=== PATIENT | male | born 1950 | race Asian ===

== ENCOUNTER 2016-11-04 12:52 | Inpatient (IN) | payer MEDICAID ==
[~2016-11-04] VITALS: Ht 180.3 cm; Wt 76.7 kg
[2016-11-04 13:06] VITALS: BP 140/103
--- NOTE | 2016-11-04 13:10 | NUR ---
Patient to bed 06.
[2016-11-04] MEDS ORDERED: LEVOD PO ×2 (13:16→16:29)
[2016-11-04] MEDS ORDERED: CARBIDOPA PO ×2 (13:16→16:29)
[2016-11-04] MEDS ORDERED: PAROXETINE20 MG PO ×2 (13:16→16:29)
[2016-11-04] MEDS ORDERED: COZAAR25 M1 PO ×2 (13:16→16:29)
[2016-11-04] MEDS ORDERED: MIRAPEX0.25 MG PO ×2 (13:16→16:29)
[2016-11-04] MEDS ORDERED: COMTAN200 MG PO ×2 (13:16→16:29)
[2016-11-04] MEDS ORDERED: CLONIDINE (13:20)
--- NOTE | 2016-11-04 13:25 | NUR ---
PATIENT PRESENTS TO ED CHEST PAIN X2 HOUR WITH DIZZINESS, WITH NAUSEA. HX PARKINSON'S AND HTN.PT STATES DENIES N/V/D; SKIN IS PINK/WARM/DRY; LUNGS CLEAR BL; HR EVEN AND REGULAR; PT DENIES ANY FEVER, OR COUGH AT THIS TIME; PATIENT STATES PAIN OF 9/10 AT THIS TIME; PATIENT POSITIONED FOR COMFORT; HOB ELEVATED; BEDRAILS UP X2; BED DOWN. DR. MAZA AT BEDSIDE. PT AAO, FAMILY AT BEDSIDE
--- NOTE | 2016-11-04 13:25 | NUR ---
DR. SHAUNNA DUNCAN PATIENT AT BEDSIDE
[2016-11-04] MEDS ORDERED: NITROGLYCERIN 0.4 MG TAB SL ONE (13:35)
[2016-11-04] MEDS ORDERED: ASPIRIN 325 MG TAB PO ONE (13:35)
--- NOTE | 2016-11-04 15:09 | NUR ---
PT RESTING AT THIS TIME, AWARE WILL BE TRANSFER TO THE TELE, FAMILY AT BEDSIDE, SKIN WARM TO TOUC RESP. EVEN AND UNLABORED.
--- NOTE | 2016-11-04 15:18 | NUR ---
REPORT GIVEN TO ANGEL IN TELE MADE AWARE NEED URINE FOR COLLECTION
--- NOTE | 2016-11-04 15:40 | NUR ---
RECEIVED PT FROM ER NURSE AWAKE LYING ON A GURNEY ACCOMPANIED BY SISTER. NO S/S OF RESPIRATORY DISTRESS OR DISCOMFORT, NO CHEST PAIN VERBALIZED BY THE PT. INITIAL ASSESSMENT DONE. WITH IV ACCESS AT RIGHT FOREARM 20G, PATENT AND INTACT. VS STABLE. SAFETY PRECAUTIONS ENFORCED. PT ORIENTED TO PERSON, TIME, PLACE. DISCUSSED PLAN OF CARE, PT VERBALIZED UNDERSTANDING. CALL LIGHT WITHIN REACH, WILL CONTINUE TO MONITOR.
[2016-11-04 16:00] VITALS: BP 149/88
[2016-11-04] MEDS ORDERED: CLONIDINE PO (16:29)
--- NOTE | 2016-11-04 17:00 | NUR ---
INFORMED DR BHATTI OF LOW MAGNESIUM.
[2016-11-04] MEDS ORDERED: ATORVASTATIN 20 MG TAB PO SCH (17:30)
[2016-11-04] MEDS ORDERED: METOPROLOL 25 MG TAB PO SCH (17:31)
[2016-11-04] MEDS ORDERED: MAG SULF 2000 MG/WATER PREMIX 50 ML IV SCH (17:31)
--- NOTE | 2016-11-04 18:00 | NUR ---
MAGNESIUM GIVEN PER ORDERS. DUE MEDS GIVEN, TOLERATED WELL. SAFETY PRECAUTIONS REENFORCED, PT VERBALIZED UNDERSTANDING. AT BEDSIDE. ALL NEEDS MET AT THIS TIME, WILL CONTINUE TO MONITOR.
--- NOTE | 2016-11-04 19:04 | NUR ---
ENDORSED PT TO JED MAURICIO IN STABLE CONDITION FOR CONTINUITY OF CARE
--- NOTE | 2016-11-04 19:10 | NUR ---
RECEIVED PT AWAKE, JUST FINISHED TAKING ULTRASOUND OF THE GALLBLADDER, WILL PROVIDE WITH REGULAR DIET ORDERED, AAOX4, WITH GEN WEAKNESS NOTED, OCCASIONAL TREMORS OF THE UPPER EXT DUE TO PARKINSON DISEASE, VITAL SIGNS STABLE, SB-SR ON TELE, DENIES CHEST PAIN, POC DISCUSSED TOGETHER WITH AT BEDSIDE, CALL LIGHT WITHIN REACH.
[2016-11-04] MEDS ORDERED: ATIVAN1 MG PO (19:52)
[2016-11-04 20:00] VITALS: BP 138/91
[2016-11-04] MEDS: ENTACAPONE 200 MG TAB PO SCH (20:00)
[2016-11-04] MEDS: CARBIDOPA/LEVODOPA 25/100 MG 1 TAB PO SCH (20:25)
[2016-11-04] MEDS: PARoxetine 20 MG TAB PO SCH (20:25)
[2016-11-04] MEDS: cloNIDine 0.1 MG TAB PO SCH (20:26)
[2016-11-04] MEDS: METOPROLOL 25 MG TAB PO SCH (20:29)
[2016-11-04] MEDS: PRAMIPEXOLE 0.5 MG TAB PO SCH (21:33)
[2016-11-04] MEDS: LORazepam 1 MG TAB PO SCH (21:33)
--- NOTE | 2016-11-04 22:10 | NUR ---
PT PREFER TO STAND WHEN VOIDING USING URINAL, MINIMAL ASSIST DONE AND VOIDED FREELY, MONITORED CLOSELY.
[2016-11-05] VITALS: BP 123/75
--- NOTE | 2016-11-05 | NUR ---
ASLEEP, EASILY AROUSABLE, VITAL SIGNS STABLE, SB ON TELE, DENIES ANY CHEST PAIN, CONTINUE TO MONITOR CLOSELY.
--- NOTE | 2016-11-05 02:00 | NUR ---
ROUNDED ON PT, SLEEPING, NO SIGNS OF DISTRESS.
[2016-11-05 04:00] VITALS: BP 122/88
--- NOTE | 2016-11-05 04:00 | NUR ---
SLEEPING, EASILY AROUSABLE, VITAL SIGNS STABLE, SB-50'S ON TELE, ASYMPTOMATIC, DENIES ANY PAIN, MONITORED CLOSELY.
[2016-11-05] MEDS: ENTACAPONE 200 MG TAB PO SCH ×6 (04:59→20:49)
--- NOTE | 2016-11-05 05:10 | NUR ---
DUE PO MEDICATION FOR PARKINSON TAKEN, SCD'S APPLIED TO BLE.
--- NOTE | 2016-11-05 06:00 | NUR ---
SEEN PT SLEEPING, NO SIGNS OF DISTRESS, MONITORED CLOSELY.
[2016-11-05] MEDS: CARBIDOPA/LEVODOPA 25/100 MG 1 TAB PO SCH ×3 (07:07→17:14)
--- NOTE | 2016-11-05 07:34 | NUR ---
PT AWAKE, NO DISTRESS NOTED, PT WANTS SCD OFF, RISK AND BENEFITS EXPLAINED, ENDORSE TO JED VANEGAS FOR CONTINUITY OF CARE.
--- NOTE | 2016-11-05 07:35 | NUR ---
RECEIVED REPORT FROM THE CO FOUNDER NURSE. PT IS ALERT AND ORIENTED. I INTRODUCED MYSELF AND UPDATED THE BOARD. PT SPEAKS VERY BROKEN WELSH. ANSWERS SHORT EASY QUESTIONS. PT SKIN IS INTACT, SCD'S ON AND NOTED TH R FA 20G NS AT 10ML. WILL SL. NO SIGNS OF DISTRESS. NO COMPLAINTS. WILL CONTINUE TO MONITOR PT.
[2016-11-05 08:00] VITALS: BP 134/90
--- NOTE | 2016-11-05 09:10 | NUR ---
PATIENT HAS BEEN SCREENED AND CATEGORIZED MODERATE NUTRITION RISK. PATIENT WILL BE SEEN WITHIN 3-5 DAYS OF ADMISSION. 11/07/16-11/09/[address]
[2016-11-05] MEDS: PRAMIPEXOLE 0.5 MG TAB PO SCH ×3 (09:15→17:14)
[2016-11-05] MEDS: METOPROLOL 25 MG TAB PO SCH ×2 (09:16→20:43)
[2016-11-05] MEDS: LOSARTAN 25 MG TAB PO SCH (09:16)
[2016-11-05] MEDS: ATORVASTATIN 20 MG TAB PO SCH (09:16)
[2016-11-05] MEDS: cloNIDine 0.1 MG TAB PO SCH (09:17)
--- NOTE | 2016-11-05 09:20 | NUR ---
ADMINISTERED MORNING MEDS. PT TOLERATED WELL. AMBULATED TO THE BATHROOM. NO SIGNS OF DISTRESS. WILL CONTINUE TO MONITOR.
--- NOTE | 2016-11-05 11:09 | NUR ---
PT SLEEPING. NO SIGNS OF DISTRESS. WILL CONTINUE TO MONITOR.
[2016-11-05] MEDS ORDERED: MAG SULF 2000 MG/WATER PREMIX 50 ML IV SCH (11:43)
[2016-11-05 12:00] VITALS: BP 117/75
--- NOTE | 2016-11-05 12:06 | NUR ---
PT SITTING IN HIGH [place] WITH AT BEDSIDE. PT IS DOING FINE. PT'S AT BEDSIDE. DR ORDER MAG-RIDER FOR HIS LOW MAGNESIUM AT 1.7. HUNG MAG RIDER AT 25ML/HR. TOLD PT IT WILL TAKE 2 HRS TO COMPLETE. EDUCATED PT AND . ANSWERED ALL QUESTIONS. SAFETY MEASURES APPLIED. SPOKE TO ABOUT HIS PARKINSON'S MEDS AND HE TAKES IT AT HOME. PT AND STATED: MIRAPEX BID; CARVDOPA Q4; AND COMTAN Q6. NOTIFIED DR. BHATTI OF FREQUENCY CHANGES. WILL CONTINUE TO MONITOR PT.
--- NOTE | 2016-11-05 12:21 | NUR ---
CM NOTE FAXED REVIEW TO [facility] ED FAX# [phone] DEPT ADINA/TIFFANY PH# [phone]
[2016-11-05] MEDS ORDERED: MIRAPEX0.25 MG PO (14:24)
[2016-11-05] MEDS ORDERED: COMTAN200 MG PO (14:24)
--- NOTE | 2016-11-05 14:35 | NUR ---
PT HR STILL SB. AT 47 RIGHT NOW. PT IS ASYMPTOMATIC. RESTING COMFORTABLY IN BED. DR. CONDE. WILL CONTINUE MONITORING PT.
--- NOTE | 2016-11-05 15:00 | NUR ---
SPOKE TO DR. BHATTI ABOUT PT AND HIS HR. MD RECOMMENDED THAT WE HOLD BP MEDS IF HR IS LESS THAN 60. WILL FOLLOW WITH ORDER. WILL PASS ON TO CONTINUOUS PROCESS ROTARY DRUM TANNER NURSE.
[2016-11-05 16:00] VITALS: BP 116/62
--- NOTE | 2016-11-05 17:30 | NUR ---
PT SITTING AT THE EDGE OF BED, FEET DANGLING WITH FAMILY AT BEDSIDE. DINNER TRAY DELIVERED. PT IS STABLE. HR IS BETTER AROUND 60. NO COMPLAINTS AT THIS TIME. WILL CONTINUE TO MONITOR PT.
--- NOTE | 2016-11-05 19:30 | NUR ---
GAVE REPORT TO THE LIQUEFACTION AND REGASIFICATION HELPER NURSE AT BEDSIDE FOR CONTINUITY OF CARE. PT IS STABLE.
--- NOTE | 2016-11-05 19:30 | NUR ---
RECEIVED REPORT FROM ROMINA ADKINS FOR CONTINUITY OF CARE. PT IS A&OX4, DISCUSSED PLAN OF CARE WITH PATIENT, VERBALIZED UNDERSTANDING. SHIFT ASSESSMENT DONE, VS TAKEN, PT IS STABLE AT THIS TIME. NO S/S OF RESPIRATORY DISTRESS NOTED ON ROOM AIR. PATIENT DENIES CHEST PAIN. IV TO RT FOREARM 20 GAUGE PATENT AND FLUSHED. SKIN INTACT. SAFETY/ FALL PRECAUTIONS ENFORCED. CALL LIGHT PLACED WITHIN REACH AND PATIENT EDUCATED TO USE FOR ASSISTANCE. WILL CONTINUE TO MONITOR.
[2016-11-05 20:00] VITALS: BP 116/52
[2016-11-05] MEDS: LORazepam 1 MG TAB PO SCH (20:48)
[2016-11-05] MEDS: PARoxetine 20 MG TAB PO SCH (20:48)
--- NOTE | 2016-11-05 20:49 | NUR ---
DUE MEDICATIONS ADMINISTERED, TOLERATED WELL. CALL LIGHT PLACED WITHIN REACH.
--- NOTE | 2016-11-05 22:17 | NUR ---
PATIENT AMBULATED TO RESTROOM, VOIDED. RETURNED TO BED, PATIENT REFUSED SCDS.
[2016-11-06] VITALS: BP 95/60
[2016-11-06] MEDS: ENTACAPONE 200 MG TAB PO SCH ×5 (00:06→12:16)
--- NOTE | 2016-11-06 00:09 | NUR ---
VS TAKEN, LOW BP NOTED, RAISED LOWER PART OF BED WILL REASSESS. PT IS SLEEPING. NO S/S OF DISTRESS NOTED. CALL LIGHT WITHIN REACH.
--- NOTE | 2016-11-06 01:59 | NUR ---
CHECKED IN ON PT, HE IS SLEEPING. NO S/S OF DISTRESS OR DISCOMFORT NOTED.
--- NOTE | 2016-11-06 03:53 | NUR ---
DUE MEDS ADMINISTERED, TOLERATED WELL. VS TAKEN, STABLE. CALL LIGHT WITHIN REACH.
[2016-11-06 04:00] VITALS: BP 127/73
--- NOTE | 2016-11-06 05:52 | NUR ---
PT IS SLEEPING. NO S/S OF DISTRESS OR DISCOMFORT NOTED. CALL LIGHT WITHIN REACH.
--- NOTE | 2016-11-06 07:15 | NUR ---
ENDORSED PATIENT TO DAYSHIFT RN FOR CONTINUITY OF CARE. PATIENT IS STABLE.
--- NOTE | 2016-11-06 07:16 | NUR ---
RECEIVED REPORT FROM NIGHT NURSE JED RIVER. PATIENT APPEARED TO BE CALM, AWAKE AND RESTING WELL IN BED. AAOX4. NO SOB OR SIGN OF DISTRESS NOTED. INITIAL ASSESSMENT AND BODY CHECK DONE. SKIN INTACT. PATIENT DENIED ANY PAIN OR CHEST DISCOMFORT. DENIED N/V. LUNG SOUNDED CLEAR ALL LUNG NAVAS, BOWEL SOUNDED ACTIVE. PATIENT HAS IV 20G TO RIGHT FOREARM INTACT AND FLUSHED WELL. PLAN OF CARE AND PAIN MANAGEMENT AND MEDICATION REGIMENTS DISCUSSED, PATIENT VERBALIZED UNDERSTANDING. CALL LIGHT WITHIN REACH. WILL CONTINUE TO MONITOR.
[2016-11-06 08:00] VITALS: BP 122/79
[2016-11-06] MEDS: CARBIDOPA/LEVODOPA 25/100 MG 1 TAB PO SCH ×2 (08:24→12:15)
[2016-11-06] MEDS: cloNIDine 0.1 MG TAB PO SCH (08:24)
[2016-11-06] MEDS: ATORVASTATIN 20 MG TAB PO SCH (08:24)
[2016-11-06] MEDS: PRAMIPEXOLE 0.5 MG TAB PO SCH ×2 (08:24→12:15)
[2016-11-06] MEDS: LOSARTAN 25 MG TAB PO SCH (08:24)
[2016-11-06] MEDS: METOPROLOL 25 MG TAB PO SCH (08:25)
--- NOTE | 2016-11-06 08:26 | NUR ---
MORNING DUE MEDICATIONS GIVEN WITH TEACHING, PATIENT TOLERATED WELL AND VERBALIZED UNDERSTANDING. NO SIGN OF DISTRESS NOTED. PATIENT HAS NO C/O OF DISCOMFORT AT THIS TIME. PATIENT CURRENTLY RESTING AND EATING BREAKFAST. CALL LIGHT WITHIN REACH. WILL CONTINUE TO MONITOR.
--- NOTE | 2016-11-06 10:15 | NUR ---
RECHECKED VITAL. PATIENT'S BP 91/40. PULSE 50. NOTIFIED DR SARAVIA AND AWARE PATIENT'S LOW BLOOD PRESSURE.
--- NOTE | 2016-11-06 10:15 | NUR ---
PUT PATIENT ON [place] POSITION. OTHERWISE APPEARED TO BE CALM AND FULLY AWAKE TO NAME CALLED AND TOUCH.
[2016-11-06] MEDS ORDERED: NACL 0.9% 500 ML IV ONE (10:35)
--- NOTE | 2016-11-06 10:39 | NUR ---
500ML BOLUS IVF OF NS INITIATED. PATIENT DENIED ANY HEADACHE OR DIZZINESS. CALL LIGHT WITHIN REACH. WILL CONTINUE TO MONITOR.
--- NOTE | 2016-11-06 10:54 | NUR ---
500ML OF NS BOLUS FINISHED. RECHECKED VS. BP 113/58, P57, O2 SAT AT 98%, RR18. PATIENT RESTING WELL IN BED. NO SIGN OF DISTRESS NOTED. ELLIS.
[2016-11-06 11:40] VITALS: BP 95/55
[2016-11-06] MEDS ORDERED: MAGNESIUM OXIDE 400 MG TAB PO SCH (12:09)
--- NOTE | 2016-11-06 12:18 | NUR ---
DUE MEDICATIONS GIVEN, PATIENT TOLERATED WELL. PATIENT AWAKE SITING ON CHAIR EATING LUNCH. DENIED ANY CHEST PAIN OR DISCOMFORT. ALL NEEDS ARE MET. CALL LIGHT WITHIN REACH. WILL CONTINUE TO MONITOR.
--- NOTE | 2016-11-06 13:17 | NUR ---
SPOKE TO PATIENT'S RICARDO ON THE PHONE REGARDING PATIENT WILL BE DISCHARGE TO DAY AROUND 1500, STATED PATIENT'S SISTER WILL COME AND PICK HIM AT 1500. PATIENT ALSO UPDATED AND AWARE.
[2016-11-06] MEDS ORDERED: LIPITOR10 MG PO (14:06)
[2016-11-06] MEDS ORDERED: PNEUMOCOCCAL VACCINE 23 MCG/0.5 ML VIAL IMVAC SCH (14:50)
--- NOTE | 2016-11-06 15:25 | NUR ---
ALL DISCHARGE INSTRUCTIONS PAPERS SIGNED BY PATIENT. ALL DISCHARGE MEDICATIONS, PRESCRIPTIONS AND FOLLOW UP WITH PCP WITHIN 1 WEEK OF DISCHARGE INSTRUCTIONS GIVEN, PATIENT AND FAMILY MEMBERS VERBALIZED UNDERSTANDING. ALL IV'S, ID BANDS, AND TELE MONITOR REMOVED. PATIENT WILL BE DISCHARGED HOME SELF CARE VIA PRIVATE VEHICLE. PATIENT LEFT THE HOSPITAL WITH FAMILY MEMBERS IN STABLE CONDITIONS. SKIN INTACT. NO SIGN OF DISTRESS NOTED. PATIENT DENIED ANY PAIN OR CHEST DISCOMFORT. DENIED N/V/D. ALL BELONGING WITH PATIENT. PT AMBULATORY.
== END 2016-11-06 15:25 | disposition home or self-care (01) | DRG 42 ==
LOC: MED 13:00 → MTU 15:16
PROVIDERS: ADMIT Family Medicine; ATTEND Family Medicine
DX: G20 Parkinson's disease (principal); N17.0 Acute kidney failure with tubular necrosis; R64 Cachexia; I50.43 Acute on chronic combined systolic (congestive) and diastolic (congestive) heart failure; E87.1 Hypo-osmolality and hyponatremia; N28.1 Cyst of kidney, acquired; R07.89 Other chest pain; I11.0 Hypertensive heart disease with heart failure; E83.42 Hypomagnesemia; E87.8 Other disorders of electrolyte and fluid balance, not elsewhere classified; E78.5 Hyperlipidemia, unspecified; E80.6 Other disorders of bilirubin metabolism; Z68.23 Body mass index [BMI] 23.0-23.9, adult; Z79.899 Other long term (current) drug therapy; Z98.890 Other specified postprocedural states